=== PATIENT | female | born 1965 | race Caucasian/White ===

== ENCOUNTER 2017-09-10 21:24 | Emergency (ER) | payer OTHER | END 2017-09-10 22:49 | disposition home or self-care (01) | LOC: D.ER 21:24 → EDBD 21:24 → D.ER 22:49 | DX: G43.909 Migraine, unspecified, not intractable, without status migrainosus (principal); E03.9 Hypothyroidism, unspecified; F17.200 Nicotine dependence, unspecified, uncomplicated ==

== ENCOUNTER 2017-09-21 08:36 | Emergency (ER) | payer OTHER | END 2017-09-21 10:00 | disposition home or self-care (01) | LOC: D.ER 08:36 | DX: G43.909 Migraine, unspecified, not intractable, without status migrainosus (principal); F17.200 Nicotine dependence, unspecified, uncomplicated ==

== ENCOUNTER 2017-10-01 20:48 | Emergency (ER) | payer OTHER | END 2017-10-01 23:33 | disposition home or self-care (01) | LOC: D.ER 20:48 | DX: G43.909 Migraine, unspecified, not intractable, without status migrainosus (principal) ==

== ENCOUNTER 2017-10-16 20:41 | Emergency (ER) | payer OTHER | END 2017-10-16 22:21 | disposition home or self-care (01) | LOC: D.ER 20:41 | DX: G43.909 Migraine, unspecified, not intractable, without status migrainosus (principal); E03.9 Hypothyroidism, unspecified; F17.200 Nicotine dependence, unspecified, uncomplicated ==

== ENCOUNTER 2017-11-19 16:09 | Emergency (ER) | payer OTHER | END 2017-11-19 17:20 | disposition home or self-care (01) | LOC: D.ER 16:09 | DX: G43.909 Migraine, unspecified, not intractable, without status migrainosus (principal); F17.200 Nicotine dependence, unspecified, uncomplicated ==

== ENCOUNTER 2017-12-21 19:26 | Emergency (ER) | payer OTHER | END 2017-12-21 22:07 | disposition home or self-care (01) | LOC: D.ER 19:26 | DX: G43.909 Migraine, unspecified, not intractable, without status migrainosus (principal); E03.9 Hypothyroidism, unspecified; F17.200 Nicotine dependence, unspecified, uncomplicated ==

== ENCOUNTER 2018-04-25 07:54 | Emergency (ER) | payer OTHER ==
[~2018-04-25] VITALS: Ht 167.6 cm; Wt 79.1 kg
[2018-04-25 07:59] VITALS: Ht 167.6 cm; Wt 79.1 kg
[2018-04-25] MEDS ORDERED: REQUIP3 MG PO (08:01)
[2018-04-25] MEDS ORDERED: ALORA1 PATCH.B1 TD (08:01)
[2018-04-25] MEDS ORDERED: IMITREX6 MG/0.51 SQ (08:02)
[2018-04-25] MEDS ORDERED: LEVOXYL25 MCG PO (08:02)
[2018-04-25] MEDS ORDERED: EFFEXOR37.5 MG PO (08:02)
[2018-04-25] MEDS ORDERED: TOPAMAX50 MG PO (08:02)
[2018-04-25 08:49] VITALS: BP 123/77
== END 2018-04-25 08:50 | disposition home or self-care (01) ==
LOC: D.ER 07:54
DX: G43.909 Migraine, unspecified, not intractable, without status migrainosus (principal); K58.9 Irritable bowel syndrome, unspecified; F17.200 Nicotine dependence, unspecified, uncomplicated

== ENCOUNTER 2019-06-04 20:34 | Emergency (ER) | payer OTHER ==
[~2019-06-04] VITALS: Ht 167.6 cm; Wt 76.8 kg
[~2019-06-04 20:34] MED LIST: ALORA1 PATCH.B1 TD; EFFEXOR37.5 MG PO; IMITREX6 MG/0.51 SQ; LEVOXYL25 MCG PO; REQUIP3 MG PO; TOPAMAX50 MG PO
[2019-06-04 20:49] VITALS: Ht 167.6 cm; Wt 76.8 kg
[2019-06-04] MEDS ORDERED: AMITIZA24 MCG PO (20:52)
[2019-06-04] MEDS ORDERED: ZANAFLEX6 MG PO (20:52)
[2019-06-04] MEDS ORDERED: PHENERGAN25 MG RC (20:53)
[2019-06-04] MEDS ORDERED: [UNRECOGNIZED DRUG - OTHER] (20:53)
[2019-06-04] MEDS ORDERED: NEUPRO1 EACH TOPICAL (20:54)
[2019-06-04] MEDS ORDERED: STADOL NASAL S2.5 ML NASAL (20:54)
[2019-06-04] MEDS ORDERED: KLONOPIN1 MG PO (20:54)
[2019-06-04 22:15] VITALS: BP 128/81
== END 2019-06-04 22:15 | disposition home or self-care (01) ==
LOC: D.ER 20:34
DX: G43.909 Migraine, unspecified, not intractable, without status migrainosus (principal); E03.9 Hypothyroidism, unspecified; F17.200 Nicotine dependence, unspecified, uncomplicated

== ENCOUNTER 2019-06-11 11:22 | Emergency (ER) | payer OTHER ==
[~2019-06-11] VITALS: Ht 167.6 cm; Wt 77.3 kg
[~2019-06-11 11:22] MED LIST changes: +AMITIZA24 MCG PO; +KLONOPIN1 MG PO; +NEUPRO1 EACH TOPICAL; +PHENERGAN25 MG RC; +STADOL NASAL S2.5 ML NASAL; +ZANAFLEX6 MG PO; +[UNRECOGNIZED DRUG - OTHER]
[2019-06-11 11:34] VITALS: Ht 167.6 cm; Wt 77.3 kg
[2019-06-11] MEDS ORDERED: ZOFRAN ODT4 MG/UDTAB PO (14:51)
[2019-06-11 15:05] VITALS: BP 155/75
== END 2019-06-11 15:05 | disposition home or self-care (01) ==
LOC: D.ER 11:22
DX: G43.009 Migraine without aura, not intractable, without status migrainosus (principal)

== ENCOUNTER 2019-06-17 22:12 | Emergency (ER) | payer OTHER ==
[~2019-06-17] VITALS: Ht 167.6 cm; Wt 77.3 kg
[~2019-06-17 22:12] MED LIST changes: +ZOFRAN ODT4 MG/UDTAB PO
[2019-06-17 22:33] VITALS: Ht 167.6 cm; Wt 77.3 kg
[2019-06-18 02:25] VITALS: BP 116/78
== END 2019-06-18 02:25 | disposition home or self-care (01) ==
LOC: D.ER 22:12
DX: G43.909 Migraine, unspecified, not intractable, without status migrainosus (principal)

== ENCOUNTER 2019-10-15 09:45 | Emergency (ER) | payer MEDICARE, OTHER ==
[~2019-10-15] VITALS: Ht 167.6 cm; Wt 76.8 kg
[2019-10-15 09:49] VITALS: BP 132/88; Ht 167.6 cm; Wt 76.8 kg
== END 2019-10-15 11:56 | disposition home or self-care (01) ==
LOC: D.ER 09:45
DX: G43.909 Migraine, unspecified, not intractable, without status migrainosus (principal); E07.9 Disorder of thyroid, unspecified

== ENCOUNTER 2019-10-30 21:34 | Emergency (ER) | payer MEDICARE, OTHER ==
[~2019-10-30] VITALS: Ht 167.6 cm; Wt 75.5 kg
[~2019-10-30 21:34] MED LIST changes: +PAXIL20 MG PO
[2019-10-30 21:51] VITALS: Ht 167.6 cm; Wt 75.5 kg
[2019-10-31 00:09] VITALS: BP 131/69
== END 2019-10-31 00:11 | disposition home or self-care (01) ==
LOC: D.ER 21:34
DX: G43.909 Migraine, unspecified, not intractable, without status migrainosus (principal); K21.9 Gastro-esophageal reflux disease without esophagitis; Z72.0 Tobacco use

== ENCOUNTER → 2020-01-30 23:10 | Outpatient (CLI) | payer MEDICARE, OTHER ==
[2019-10-30 21:51] VITALS: BMI 26.8
== END | disposition home or self-care (01) ==
LOC: D.LABREF 23:10
PROVIDERS: ATTEND Urology
DX: N39.0 Urinary tract infection, site not specified (principal)

== ENCOUNTER 2020-03-24 21:21 | Emergency (ER) | payer MEDICARE, OTHER ==
[~2020-03-24] VITALS: Ht 167.6 cm; Wt 77.3 kg
[2020-03-24 21:34] VITALS: BP 109/73; Ht 167.6 cm; Wt 77.3 kg
== END 2020-03-24 23:59 | disposition home or self-care (01) ==
LOC: D.ER 21:21
DX: G43.909 Migraine, unspecified, not intractable, without status migrainosus (principal); R11.2 Nausea with vomiting, unspecified; E03.9 Hypothyroidism, unspecified; K21.9 Gastro-esophageal reflux disease without esophagitis

== ENCOUNTER 2020-05-30 18:01 | Emergency (ER) | payer MEDICARE, OTHER ==
[~2020-05-30] VITALS: Ht 167.6 cm; Wt 77.3 kg
[2020-05-30 18:09] VITALS: Ht 167.6 cm; Wt 77.3 kg
[2020-05-30 19:57] VITALS: BP 122/80
== END 2020-05-30 20:15 | disposition home or self-care (01) ==
LOC: D.ER 18:01
DX: G43.909 Migraine, unspecified, not intractable, without status migrainosus (principal); E03.9 Hypothyroidism, unspecified; G62.9 Polyneuropathy, unspecified; K21.9 Gastro-esophageal reflux disease without esophagitis

== ENCOUNTER 2021-01-28 20:25 | Emergency (ER) | payer MEDICARE, BC ==
[~2021-01-28 20:25] MED LIST changes: +CYMBALTA60 MG PO; +ESTRACE1 MG PO; +MAXALT MLT10 MG/TAB PO; +MIRAPEX0.25 MG; +TRAZODONE HCL300 MG PO
[2021-01-28 20:29] VITALS: Ht 167.6 cm
[2021-01-28 21:09] VITALS: BP 97/53
== END 2021-01-28 21:09 | disposition home or self-care (01) ==
LOC: D.ER 20:25
DX: G43.909 Migraine, unspecified, not intractable, without status migrainosus (principal); E03.9 Hypothyroidism, unspecified; K21.9 Gastro-esophageal reflux disease without esophagitis